=== PATIENT | female | born 1965 | race Caucasian/White ===

== ENCOUNTER 2018-08-16 23:40 | Inpatient (IN) ==
[2018-08-17] MEDS ORDERED: KETOROLAC 30 MG/1 ML VIAL IV STA (01:38)
[2018-08-17 02:26] LABS: Basophils % 0.4 % (0.0-0.8); Eosinophils % 0.5 % (0.00-10.9); Hemoglobin 12.1 GM/DL (12.0-16.0); Immature Granulocytes % 0.5 %; Immature Granulocytes Absolute 0.04 #; Lymphocytes # 2.3 10*3/uL (1.4-4.0); Lymphocytes % 26.8 % (21.3-54.2); Mean Corpuscular HGB Conc 32.7 GM/DL (32-36); Mean Corpuscular Hemoglobin 28 PG (27-34); Mean Corpuscular Volume 85.1 FL (87-102); Mean Platelet Volume 10.1 FL (9.6-12.0); Monocytes # 0.9 10*3/uL (0.11-0.8); Neutrophils # 5.3 10*3/uL (1.4-7.4); Neutrophils % 61.8 % (38.7-73.9); Platelet Count 247 T/CUMM (130-400); Red Blood Count 4.35 MC/CUMM (3.8-5.5); Red Cell Distribution Width 15.7 % (9.3-17.3); White Blood Count 8.6 T/CUMM (4-12)
[2018-08-17 02:51] LABS: Bilirubin,Total 0.6 MG/DL (0.2-1.0); Osmolality,Calculated 287.1 MOS/KG (273-304); Potassium 4.2 MMOL/L (3.5-5.1); Total Protein 8.1 G/DL (6.4-8.3)
[2018-08-17] MEDS ORDERED: INSULIN REGULAR 100 UNIT/ML IV STA (03:26)
[2018-08-17] MEDS ORDERED: SODIUM CHLORIDE 0.9% 2,000 ML IV STA (03:27)
[2018-08-17 03:30] LABS: Apearance,Urine CLEAR (Clear); Bacteria,Urine Occasional /HPF (Few); Bilirubin,Urine Negative (Negative); Blood, Urine Small mg/dL (Negative); Glucose,Urine (UA) >=500 mg/dL (Negative); Ketones,Urine Negative (Negative); Nitrite,Urine Negative (Negative); Protein,Urine Negative; RBC,Urine 4 /HPF (0-4); Squamous Epithelial Cell,Urine Occasional /HPF (0-10); Urine Color Straw (Yellow); Urine Specific Gravity 1.027 (1.001-1.035); Urine Urobilinogen < 2.0 EU/DL (0.2-1.0); WBC,Urine 14 /HPF (0-6)
[2018-08-17] MEDS ORDERED: GLUCAGON 1 MG VIAL IM PRN ×2 (04:09→14:19)
[2018-08-17] MEDS ORDERED: DEXTROSE 50% 25 GM/50 ML VIAL IV PRN (04:09)
[2018-08-17] MEDS: SODIUM CHLORIDE 0.9% 1,000 ML IV SCH ×2 (05:10→17:19)
[2018-08-17 05:20] LABS: Barbiturates Screen,Urine Negative (Negative); Benzodiazepines Screen,Urine Negative (Negative); Cannabinoid Screen,Urine Negative (Negative); Opiate Screen,Urine Positive (Negative); Phencyclidine Screen,Urine Negative (Negative)
[2018-08-17] MEDS: HYDROmorphone 2 MG/1 ML VIAL IV PRN ×10 (05:39→23:19)
[2018-08-17] MEDS ORDERED: LIDOCAINE 1% 20 ML VIAL MISC INJ ONE (07:30)
[2018-08-17] MEDS: INSULIN REGULAR 100 UNIT/ML SUBCUT SCH ×4 (08:17→20:24)
[2018-08-17 08:26] LABS: Cholesterol Crystals None Seen /LPF
[2018-08-17 08:53] LABS: Lymphocytes,Synovial Fluid 2 %; Neutrophils,Synovial Fluid 97 %
[2018-08-17] MEDS ORDERED: INFLUENZA VIRUS VACCINE 0.5 ML SYRINGE IM ONE (09:00)
[2018-08-17 09:39] LABS: Calcium 8.8 MG/DL (8.5-10.1); Osmolality,Calculated 275.4 MOS/KG (273-304)
[2018-08-17] MEDS: ONDANSETRON 4 MG/2 ML VIAL IV PRN ×2 (09:56→16:25)
[2018-08-17 10:38] LABS: HIV Antigen/Antibody Result Nonreactive (Nonreactive)
[2018-08-17] MEDS ORDERED: VANCOMYCIN 1,000 MG VIAL ONE (13:19)
[2018-08-17] MEDS ORDERED: BUPIVACAINE 0.5% 50 ML VIAL ONE (13:19)
[2018-08-17] MEDS ORDERED: BACITRACIN OINT 0.9 GM PACK TOP ONE (13:19)
[2018-08-17] MEDS ORDERED: CYCLOBENZAPRINE 10 MG TABLET PO PRN (14:13)
[2018-08-17] MEDS ORDERED: MIDAZOLAM 2 MG/2 ML VIAL ONE (14:17)
[2018-08-17] MEDS ORDERED: PROPOFOL 200 MG/20 ML VIAL IV ONE (14:17)
[2018-08-17] MEDS ORDERED: SEVOFLURANE 1 UNIT/15 MINUTE INH ONE (14:17)
[2018-08-17] MEDS ORDERED: ROCURONIUM 100 MG/10 ML VIAL IV ONE (14:18)
[2018-08-17] MEDS ORDERED: fentaNYL 100 MCG/2 ML VIAL ONE (14:18)
[2018-08-17] MEDS ORDERED: ONDANSETRON 4 MG/2 ML VIAL ONE (14:18)
[2018-08-17] MEDS ORDERED: DEXTROSE 50% 25 GM/50 ML SYRINGE IV PRN (14:19)
[2018-08-17] MEDS ORDERED: HYDROmorphone 2 MG/1 ML VIAL ONE (14:21)
[2018-08-17] MEDS ORDERED: ACETAMINOPHEN 325 MG TABLET PO PRN (14:24)
[2018-08-17] MEDS ORDERED: KETOROLAC 30 MG/1 ML VIAL IV PRN (14:24)
[2018-08-17] MEDS ORDERED: HYDROmorphone 2 MG/1 ML VIAL IV PRN (14:24)
[2018-08-17] MEDS ORDERED: oxyCODONE/ACETAMINOPHEN 5-325 MG TABLET PO PRN (14:24)
[2018-08-17] MEDS: MEROPENEM 1,000 MG in SODIUM CHLORIDE 0.9% 100 ML IV SCH (17:04)
[2018-08-17] MEDS: glyBURIDE 5 MG TABLET PO SCH (17:39)
[2018-08-17] MEDS: VANCOMYCIN INJ 1,250 MG in SODIUM CHLORIDE 0.9% 250 ML IV SCH (18:10)
[2018-08-17] MEDS: INSULIN GLARGINE 100 UNIT/ML SUBCUT SCH (20:24)
[2018-08-17] MEDS: POTASSIUM CITRATE 10 MEQ TABLET PO SCH (20:24)
[2018-08-18] MEDS: MEROPENEM 1,000 MG in SODIUM CHLORIDE 0.9% 100 ML IV SCH ×3 (00:56→16:40)
[2018-08-18] MEDS: HYDROmorphone 2 MG/1 ML VIAL IV PRN ×7 (02:28→23:01)
[2018-08-18] MEDS: ONDANSETRON 4 MG/2 ML VIAL IV PRN (03:22)
[2018-08-18] MEDS: oxyCODONE/ACETAMINOPHEN 5-325 MG TABLET PO PRN ×2 (03:28→21:46)
[2018-08-18] MEDS: VANCOMYCIN INJ 1,250 MG in SODIUM CHLORIDE 0.9% 250 ML IV SCH ×2 (05:41→18:43)
[2018-08-18 07:14] LABS: Albumin 2.4 G/DL (3.4-5.0); Bilirubin,Total 0.5 MG/DL (0.2-1.0); Calcium 8.5 MG/DL (8.5-10.1); Osmolality,Calculated 273.2 MOS/KG (273-304); Potassium 4.1 MMOL/L (3.5-5.1); Total Protein 6.9 G/DL (6.4-8.3)
[2018-08-18 08:07] LABS: Basophils % 0.5 % (0.0-0.8); Eosinophils # 0.1 10*3/uL (0.0-0.87); Hematocrit 31.4 VOL% (35.7-47.0); Hemoglobin 10.3 GM/DL (12.0-16.0); Immature Granulocytes % 0.3 %; Immature Granulocytes Absolute 0.03 #; Lymphocytes # 2.5 10*3/uL (1.4-4.0); Lymphocytes % 28.4 % (21.3-54.2); Mean Corpuscular HGB Conc 32.8 GM/DL (32-36); Mean Corpuscular Hemoglobin 28 PG (27-34); Mean Corpuscular Volume 85.8 FL (87-102); Mean Platelet Volume 9.4 FL (9.6-12.0); Monocytes # 0.6 10*3/uL (0.11-0.8); Monocytes % 7.2 % (1.7-12.7); Neutrophils # 5.4 10*3/uL (1.4-7.4); Neutrophils % 62.6 % (38.7-73.9); Platelet Count 253 T/CUMM (130-400); Red Blood Count 3.66 MC/CUMM (3.8-5.5); Red Cell Distribution Width 15.7 % (9.3-17.3); White Blood Count 8.7 T/CUMM (4-12)
[2018-08-18] MEDS: INSULIN REGULAR 100 UNIT/ML SUBCUT SCH ×4 (08:45→21:43)
[2018-08-18] MEDS ORDERED: AMPHETAMINE PO SCH (09:00)
[2018-08-18] MEDS ORDERED: DEXTROAMPHETAMINE PO SCH (09:00)
[2018-08-18] MEDS: POTASSIUM CITRATE 10 MEQ TABLET PO SCH ×2 (09:42→21:39)
[2018-08-18] MEDS: glyBURIDE 5 MG TABLET PO SCH ×2 (09:42→16:41)
[2018-08-18] MEDS: METOPROLOL SUCCINATE XL 25 MG TABLET PO SCH (09:42)
[2018-08-18] MEDS: INSULIN GLARGINE 100 UNIT/ML SUBCUT SCH ×2 (09:43→21:40)
[2018-08-18] MEDS: FONDAPARINUX 2.5 MG/0.5 ML SYRINGE SUBCUT SCH (09:45)
[2018-08-18] MEDS: PANTOPRAZOLE 40 MG TABLET PO SCH (18:44)
[2018-08-19] MEDS: MEROPENEM 1,000 MG in SODIUM CHLORIDE 0.9% 100 ML IV SCH ×3 (02:02→17:29)
[2018-08-19] MEDS: HYDROmorphone 2 MG/1 ML VIAL IV PRN ×6 (02:04→20:51)
[2018-08-19 03:11] LABS: Basophils % 0.6 % (0.0-0.8); Eosinophils # 0.1 10*3/uL (0.0-0.87); Eosinophils % 1.9 % (0.00-10.9); Hematocrit 31.5 VOL% (35.7-47.0); Hemoglobin 9.9 GM/DL (12.0-16.0); Immature Granulocytes % 0.4 %; Immature Granulocytes Absolute 0.03 #; Lymphocytes # 2.3 10*3/uL (1.4-4.0); Lymphocytes % 32.8 % (21.3-54.2); Mean Corpuscular HGB Conc 31.4 GM/DL (32-36); Mean Corpuscular Hemoglobin 27 PG (27-34); Mean Corpuscular Volume 86.8 FL (87-102); Mean Platelet Volume 9.8 FL (9.6-12.0); Monocytes # 0.7 10*3/uL (0.11-0.8); Monocytes % 10.4 % (1.7-12.7); Neutrophils # 3.7 10*3/uL (1.4-7.4); Neutrophils % 53.9 % (38.7-73.9); Platelet Count 265 T/CUMM (130-400); Red Blood Count 3.63 MC/CUMM (3.8-5.5); Red Cell Distribution Width 15.5 % (9.3-17.3); White Blood Count 6.9 T/CUMM (4-12)
[2018-08-19 03:26] LABS: Calcium 8.4 MG/DL (8.5-10.1); Osmolality,Calculated 283.8 MOS/KG (273-304); Potassium 4.4 MMOL/L (3.5-5.1)
[2018-08-19] MEDS: ONDANSETRON 4 MG/2 ML VIAL IV PRN (07:51)
[2018-08-19] MEDS: INSULIN REGULAR 100 UNIT/ML SUBCUT SCH ×4 (08:06→20:51)
[2018-08-19] MEDS: INSULIN GLARGINE 100 UNIT/ML SUBCUT SCH ×2 (08:07→20:50)
[2018-08-19] MEDS: POTASSIUM CITRATE 10 MEQ TABLET PO SCH ×2 (08:08→20:51)
[2018-08-19] MEDS: PANTOPRAZOLE 40 MG TABLET PO SCH (08:08)
[2018-08-19] MEDS: PROMETHAZINE 25 MG TABLET PO PRN (08:08)
[2018-08-19] MEDS: METOPROLOL SUCCINATE XL 25 MG TABLET PO SCH (08:08)
[2018-08-19] MEDS: glyBURIDE 5 MG TABLET PO SCH ×2 (08:08→17:29)
[2018-08-19] MEDS: FONDAPARINUX 2.5 MG/0.5 ML SYRINGE SUBCUT SCH (08:09)
[2018-08-19] MEDS: oxyCODONE/ACETAMINOPHEN 5-325 MG TABLET PO PRN ×3 (09:55→18:52)
[2018-08-19] MEDS: VANCOMYCIN INJ 1,250 MG in SODIUM CHLORIDE 0.9% 250 ML IV SCH (12:40)
[2018-08-20] MEDS: MEROPENEM 1,000 MG in SODIUM CHLORIDE 0.9% 100 ML IV SCH ×2 (01:50→09:07)
[2018-08-20] MEDS: VANCOMYCIN INJ 1,250 MG in SODIUM CHLORIDE 0.9% 250 ML IV SCH (01:50)
[2018-08-20] MEDS ORDERED: cefTRIAXone 1,000 MG VIAL IM ONE (02:00)
[2018-08-20] MEDS: HYDROmorphone 2 MG/1 ML VIAL IV PRN ×7 (02:25→21:32)
[2018-08-20] MEDS: MAGNESIUM HYDROXIDE SUSP 30 ML UDCUP PO PRN ×2 (02:33→18:21)
[2018-08-20 05:52] LABS: Basophils # 0.1 10*3/uL (0.0-0.2); Eosinophils # 0.2 10*3/uL (0.0-0.87); Eosinophils % 2.5 % (0.00-10.9); Hematocrit 35.5 VOL% (35.7-47.0); Hemoglobin 11.1 GM/DL (12.0-16.0); Immature Granulocytes % 0.3 %; Immature Granulocytes Absolute 0.02 #; Lymphocytes # 2.7 10*3/uL (1.4-4.0); Lymphocytes % 42.4 % (21.3-54.2); Mean Corpuscular HGB Conc 31.3 GM/DL (32-36); Mean Corpuscular Hemoglobin 27 PG (27-34); Mean Platelet Volume 9.3 FL (9.6-12.0); Monocytes # 0.6 10*3/uL (0.11-0.8); Monocytes % 9.7 % (1.7-12.7); Neutrophils # 2.8 10*3/uL (1.4-7.4); Neutrophils % 44.1 % (38.7-73.9); Platelet Count 334 T/CUMM (130-400); Red Blood Count 4.08 MC/CUMM (3.8-5.5); Red Cell Distribution Width 15.6 % (9.3-17.3); White Blood Count 6.3 T/CUMM (4-12)
[2018-08-20 06:10] LABS: Calcium 8.8 MG/DL (8.5-10.1); Potassium 4.2 MMOL/L (3.5-5.1)
[2018-08-20] MEDS ORDERED: hydrALAZINE 20 MG/1 ML VIAL IV PRN (07:23)
[2018-08-20] MEDS: FONDAPARINUX 2.5 MG/0.5 ML SYRINGE SUBCUT SCH (09:09)
[2018-08-20] MEDS: INSULIN GLARGINE 100 UNIT/ML SUBCUT SCH ×2 (09:09→21:37)
[2018-08-20] MEDS: PANTOPRAZOLE 40 MG TABLET PO SCH (09:09)
[2018-08-20] MEDS: METOPROLOL SUCCINATE XL 25 MG TABLET PO SCH (09:09)
[2018-08-20] MEDS: POTASSIUM CITRATE 10 MEQ TABLET PO SCH ×2 (09:10→21:42)
[2018-08-20] MEDS: glyBURIDE 5 MG TABLET PO SCH ×2 (09:11→17:24)
[2018-08-20] MEDS: INSULIN REGULAR 100 UNIT/ML SUBCUT SCH ×4 (09:14→21:36)
[2018-08-20] MEDS: LEVOFLOXACIN 750 MG TABLET PO SCH (11:26)
[2018-08-20] MEDS: ERTAPENEM 1,000 MG in SODIUM CHLORIDE 0.9% 100 ML IV SCH (11:26)
[2018-08-21] MEDS: HYDROmorphone 2 MG/1 ML VIAL IV PRN ×7 (01:37→22:32)
[2018-08-21 05:38] LABS: Basophils # 0.1 10*3/uL (0.0-0.2); Basophils % 0.8 % (0.0-0.8); Eosinophils # 0.2 10*3/uL (0.0-0.87); Eosinophils % 2.7 % (0.00-10.9); Hematocrit 33.7 VOL% (35.7-47.0); Hemoglobin 10.8 GM/DL (12.0-16.0); Immature Granulocytes % 0.3 %; Immature Granulocytes Absolute 0.02 #; Lymphocytes # 2.6 10*3/uL (1.4-4.0); Lymphocytes % 44.3 % (21.3-54.2); Mean Corpuscular Hemoglobin 28 PG (27-34); Mean Corpuscular Volume 87.8 FL (87-102); Mean Platelet Volume 9.6 FL (9.6-12.0); Monocytes # 0.6 10*3/uL (0.11-0.8); Monocytes % 10.5 % (1.7-12.7); Neutrophils # 2.4 10*3/uL (1.4-7.4); Neutrophils % 41.4 % (38.7-73.9); Platelet Count 331 T/CUMM (130-400); Red Blood Count 3.84 MC/CUMM (3.8-5.5); Red Cell Distribution Width 15.5 % (9.3-17.3); White Blood Count 5.9 T/CUMM (4-12)
[2018-08-21 06:04] LABS: Calcium 8.9 MG/DL (8.5-10.1); Osmolality,Calculated 276.1 MOS/KG (273-304); Potassium 4.8 MMOL/L (3.5-5.1)
[2018-08-21] MEDS: glyBURIDE 5 MG TABLET PO SCH ×2 (09:55→16:30)
[2018-08-21] MEDS: FONDAPARINUX 2.5 MG/0.5 ML SYRINGE SUBCUT SCH (09:55)
[2018-08-21] MEDS: INSULIN GLARGINE 100 UNIT/ML SUBCUT SCH ×2 (09:55→21:32)
[2018-08-21] MEDS: METOPROLOL SUCCINATE XL 25 MG TABLET PO SCH (09:56)
[2018-08-21] MEDS: INSULIN REGULAR 100 UNIT/ML SUBCUT SCH ×4 (09:56→21:31)
[2018-08-21] MEDS: LEVOFLOXACIN 750 MG TABLET PO SCH (09:56)
[2018-08-21] MEDS: POTASSIUM CITRATE 10 MEQ TABLET PO SCH ×2 (09:56→21:32)
[2018-08-21] MEDS: PANTOPRAZOLE 40 MG TABLET PO SCH (09:56)
[2018-08-21] MEDS: ERTAPENEM 1,000 MG in SODIUM CHLORIDE 0.9% 100 ML IV SCH (09:58)
[2018-08-21] MEDS: DOCUSATE SODIUM 100 MG CAPSULE PO SCH (13:06)
[2018-08-22] MEDS: HYDROmorphone 2 MG/1 ML VIAL IV PRN ×7 (01:30→23:39)
[2018-08-22 04:33] LABS: Basophils # 0.1 10*3/uL (0.0-0.2); Eosinophils # 0.2 10*3/uL (0.0-0.87); Eosinophils % 2.4 % (0.00-10.9); Hematocrit 34.8 VOL% (35.7-47.0); Hemoglobin 11.1 GM/DL (12.0-16.0); Immature Granulocytes % 0.6 %; Immature Granulocytes Absolute 0.04 #; Lymphocytes % 44.8 % (21.3-54.2); Mean Corpuscular HGB Conc 31.9 GM/DL (32-36); Mean Corpuscular Hemoglobin 28 PG (27-34); Mean Platelet Volume 9.4 FL (9.6-12.0); Monocytes # 0.7 10*3/uL (0.11-0.8); Monocytes % 9.7 % (1.7-12.7); Neutrophils # 2.8 10*3/uL (1.4-7.4); Neutrophils % 41.5 % (38.7-73.9); Platelet Count 349 T/CUMM (130-400); Red Cell Distribution Width 15.3 % (9.3-17.3); White Blood Count 6.7 T/CUMM (4-12)
[2018-08-22 05:02] LABS: Calcium 9.1 MG/DL (8.5-10.1); Osmolality,Calculated 274.8 MOS/KG (273-304); Potassium 4.4 MMOL/L (3.5-5.1)
[2018-08-22] MEDS: INSULIN REGULAR 100 UNIT/ML SUBCUT SCH ×4 (07:33→21:12)
[2018-08-22] MEDS: glyBURIDE 5 MG TABLET PO SCH ×3 (08:50→16:42)
[2018-08-22] MEDS: ERTAPENEM 1,000 MG in SODIUM CHLORIDE 0.9% 100 ML IV SCH (09:21)
[2018-08-22] MEDS ORDERED: PROPOFOL 200 MG/20 ML VIAL IV ONE (12:34)
[2018-08-22] MEDS ORDERED: PHENYLEPHRINE 10 MG/1 ML VIAL IV ONE (12:34)
[2018-08-22] MEDS ORDERED: SODIUM CHLORIDE 0.9% 100 ML IV ONE (12:34)
[2018-08-22] MEDS ORDERED: ETOMIDATE 40 MG/20 ML VIAL IV ONE (12:34)
[2018-08-22] MEDS: FONDAPARINUX 2.5 MG/0.5 ML SYRINGE SUBCUT SCH ×2 (13:52→14:23)
[2018-08-22] MEDS: INSULIN GLARGINE 100 UNIT/ML SUBCUT SCH ×2 (13:52→21:13)
[2018-08-22] MEDS: DOCUSATE SODIUM 100 MG CAPSULE PO SCH (13:52)
[2018-08-22] MEDS: PANTOPRAZOLE 40 MG TABLET PO SCH (13:53)
[2018-08-22] MEDS: METOPROLOL SUCCINATE XL 25 MG TABLET PO SCH (13:53)
[2018-08-22] MEDS: POTASSIUM CITRATE 10 MEQ TABLET PO SCH ×2 (13:53→20:29)
[2018-08-22] MEDS: LEVOFLOXACIN 750 MG TABLET PO SCH (14:22)
[2018-08-23] MEDS: PROMETHAZINE 25 MG TABLET PO PRN (02:37)
[2018-08-23] MEDS: HYDROmorphone 2 MG/1 ML VIAL IV PRN ×4 (05:41→16:35)
[2018-08-23 08:28] LABS: Basophils # 0.1 10*3/uL (0.0-0.2); Basophils % 0.9 % (0.0-0.8); Eosinophils # 0.2 10*3/uL (0.0-0.87); Eosinophils % 3.1 % (0.00-10.9); Hematocrit 35.8 VOL% (35.7-47.0); Hemoglobin 11.4 GM/DL (12.0-16.0); Immature Granulocytes % 0.4 %; Immature Granulocytes Absolute 0.03 #; Lymphocytes # 3.3 10*3/uL (1.4-4.0); Lymphocytes % 47.1 % (21.3-54.2); Mean Corpuscular HGB Conc 31.8 GM/DL (32-36); Mean Corpuscular Hemoglobin 28 PG (27-34); Mean Corpuscular Volume 88.4 FL (87-102); Mean Platelet Volume 9.1 FL (9.6-12.0); Monocytes # 0.6 10*3/uL (0.11-0.8); Neutrophils # 2.8 10*3/uL (1.4-7.4); Neutrophils % 40.5 % (38.7-73.9); Platelet Count 344 T/CUMM (130-400); Red Blood Count 4.05 MC/CUMM (3.8-5.5); Red Cell Distribution Width 15.3 % (9.3-17.3)
[2018-08-23] MEDS: ERTAPENEM 1,000 MG in SODIUM CHLORIDE 0.9% 100 ML IV SCH (08:43)
[2018-08-23] MEDS: INSULIN REGULAR 100 UNIT/ML SUBCUT SCH ×3 (08:43→16:34)
[2018-08-23] MEDS: FONDAPARINUX 2.5 MG/0.5 ML SYRINGE SUBCUT SCH (08:48)
[2018-08-23] MEDS: POTASSIUM CITRATE 10 MEQ TABLET PO SCH (08:49)
[2018-08-23] MEDS: PANTOPRAZOLE 40 MG TABLET PO SCH (08:50)
[2018-08-23] MEDS: METOPROLOL SUCCINATE XL 25 MG TABLET PO SCH (08:50)
[2018-08-23] MEDS: DOCUSATE SODIUM 100 MG CAPSULE PO SCH (08:50)
[2018-08-23] MEDS: LEVOFLOXACIN 750 MG TABLET PO SCH (08:50)
[2018-08-23] MEDS: glyBURIDE 5 MG TABLET PO SCH ×2 (08:50→16:34)
[2018-08-23] MEDS: INSULIN GLARGINE 100 UNIT/ML SUBCUT SCH (08:52)
[2018-08-23 08:58] LABS: Calcium 8.9 MG/DL (8.5-10.1); Osmolality,Calculated 276.7 MOS/KG (273-304); Potassium 4.2 MMOL/L (3.5-5.1)
[2018-08-23] MEDS: oxyCODONE/ACETAMINOPHEN 5-325 MG TABLET PO PRN (15:34)
[2018-08-23 16:47] VITALS: BP 107/73
== END 2018-08-23 18:10 | disposition home or self-care (01) | DRG 493 ==
LOC: N.ED 23:40 → SUATTDRO 08-17 04:05 → N.EDINP 08-17 04:05 → N.3E 08-17 04:50 → N.2E 08-19 19:03
PROVIDERS: ADMIT Internal Medicine; ATTEND Internal Medicine

== ENCOUNTER 2018-11-28 13:13 | Inpatient (IN) ==
[2018-11-28 13:46] LABS: Basophils % 0.3 % (0.0-0.8); Eosinophils % 0.2 % (0.00-10.9); Hematocrit 42.4 VOL% (35.7-47.0); Hemoglobin 13.6 GM/DL (12.0-16.0); Immature Granulocytes % 0.6 %; Immature Granulocytes Absolute 0.07 #; Lymphocytes # 1.8 10*3/uL (1.4-4.0); Lymphocytes % 15.3 % (21.3-54.2); Mean Corpuscular HGB Conc 32.1 GM/DL (32-36); Mean Corpuscular Hemoglobin 28 PG (27-34); Mean Corpuscular Volume 86.2 FL (87-102); Mean Platelet Volume 10.2 FL (9.6-12.0); Monocytes # 0.8 10*3/uL (0.11-0.8); Monocytes % 6.8 % (1.7-12.7); Neutrophils # 8.9 10*3/uL (1.4-7.4); Neutrophils % 76.8 % (38.7-73.9); Platelet Count 224 T/CUMM (130-400); Red Blood Count 4.92 MC/CUMM (3.8-5.5); Red Cell Distribution Width 15.1 % (9.3-17.3); White Blood Count 11.5 T/CUMM (4-12)
[2018-11-28 14:15] LABS: Albumin 3.3 G/DL (3.4-5.0); Bilirubin,Total 0.9 MG/DL (0.2-1.0); Osmolality,Calculated 274.4 MOS/KG (273-304); Potassium 3.8 MMOL/L (3.5-5.1)
[2018-11-28] MEDS ORDERED: ONDANSETRON 4 MG/2 ML VIAL IV STA (14:22)
[2018-11-28] MEDS ORDERED: HYDROmorphone 2 MG/1 ML VIAL IV STA (14:22)
[2018-11-28 15:53] LABS: Apearance,Urine CLOUDY (Clear); Bacteria,Urine Occasional /HPF (Few); Bilirubin,Urine Negative (Negative); Blood, Urine Small mg/dL (Negative); Glucose,Urine (UA) Negative (Negative); Hyaline Casts,Urine 32 /LPF (0-3); Ketones,Urine 5 mg/dL (Negative); Mucus,Urine Occasional /LPF (Occasional); Nitrite,Urine Negative (Negative); Protein,Urine 30 MG/DL; RBC,Urine <1 /HPF (0-4); Squamous Epithelial Cell,Urine Occasional /HPF (0-10); Urine Color Amber (Yellow); Urine Specific Gravity 1.016 (1.001-1.035); Urine Urobilinogen < 2.0 EU/DL (0.2-1.0); WBC,Urine 1 /HPF (0-6)
[2018-11-28] MEDS ORDERED: SODIUM CHLORIDE 0.9% 1,000 ML IV STA (16:13)
[2018-11-28] MEDS ORDERED: DOCUSATE SODIUM 100 MG CAPSULE PO PRN (16:27)
[2018-11-28] MEDS ORDERED: DEXTROSE 50% 25 GM/50 ML VIAL IV PRN (16:27)
[2018-11-28] MEDS ORDERED: ONDANSETRON 4 MG/2 ML VIAL IV PRN (16:27)
[2018-11-28] MEDS ORDERED: GLUCAGON 1 MG VIAL IM PRN (16:27)
[2018-11-28] MEDS ORDERED: ALBUTEROL 2.5 MG/3 ML NEB RESP TX PRN (19:36)
[2018-11-28] MEDS ORDERED: INSULIN GLARGINE 100 UNIT/ML SUBCUT SCH (21:00)
[2018-11-28] MEDS ORDERED: cefTRIAXone 1,000 MG in SYRINGE 1 EACH IV SCH (21:00)
[2018-11-28] MEDS: INSULIN LISPRO 100 UNIT/ML SUBCUT SCH (21:39)
[2018-11-28] MEDS: SODIUM CHLORIDE 0.9% 1,000 ML IV SCH (21:41)
[2018-11-28] MEDS: METOPROLOL TARTRATE 25 MG TABLET PO SCH (21:44)
[2018-11-28] MEDS: HYDROmorphone 2 MG TABLET PO PRN (21:44)
[2018-11-29] MEDS: INSULIN LISPRO 100 UNIT/ML SUBCUT SCH ×5 (02:01→17:00)
[2018-11-29] MEDS: HYDROmorphone 2 MG TABLET PO PRN ×4 (02:04→13:45)
[2018-11-29 03:49] LABS: Basophils % 0.3 % (0.0-0.8); Eosinophils % 0.1 % (0.00-10.9); Hematocrit 38.8 VOL% (35.7-47.0); Hemoglobin 12.4 GM/DL (12.0-16.0); Immature Granulocytes % 0.7 %; Immature Granulocytes Absolute 0.08 #; Lymphocytes # 1.5 10*3/uL (1.4-4.0); Lymphocytes % 12.1 % (21.3-54.2); Mean Corpuscular Hemoglobin 28 PG (27-34); Mean Corpuscular Volume 86.8 FL (87-102); Mean Platelet Volume 10.6 FL (9.6-12.0); Monocytes # 0.9 10*3/uL (0.11-0.8); Monocytes % 7.1 % (1.7-12.7); Neutrophils # 9.5 10*3/uL (1.4-7.4); Neutrophils % 79.7 % (38.7-73.9); Platelet Count 230 T/CUMM (130-400); Red Blood Count 4.47 MC/CUMM (3.8-5.5); White Blood Count 11.9 T/CUMM (4-12)
[2018-11-29 04:09] LABS: Albumin 3.1 G/DL (3.4-5.0); Calcium 8.6 MG/DL (8.5-10.1); Osmolality,Calculated 275.7 MOS/KG (273-304); Total Protein 8.4 G/DL (6.4-8.3)
[2018-11-29] MEDS: SODIUM CHLORIDE 0.9% 1,000 ML IV SCH ×4 (06:13→19:01)
[2018-11-29] MEDS ORDERED: PANTOPRAZOLE 40 MG TABLET PO SCH (09:00)
[2018-11-29] MEDS: METOPROLOL TARTRATE 25 MG TABLET PO SCH (09:21)
[2018-11-29] MEDS ORDERED: cefTAZidime 2,000 MG in SYRINGE 1 EACH IV SCH (14:30)
[2018-11-29] MEDS ORDERED: METHOCARBAMOL 750 MG TABLET PO PRN (14:54)
[2018-11-29] MEDS ORDERED: HYDROmorphone 2 MG TABLET PO PRN (14:57)
[2018-11-29] MEDS ORDERED: VANCOMYCIN INJ 1,500 MG in SODIUM CHLORIDE 0.9% 500 ML IV SCH (15:00)
[2018-11-29] MEDS ORDERED: DOCUSATE SODIUM 100 MG CAPSULE PO SCH (15:00)
[2018-11-29] MEDS ORDERED: INSULIN GLARGINE 100 UNIT/ML SUBCUT SCH (16:30)
[2018-11-29] MEDS ORDERED: ZALEPLON 5 MG CAPSULE PO SCH (21:00)
[2018-11-29 22:05] VITALS: BP 121/76
== END 2018-11-29 20:20 | disposition hospice, home (50) | DRG 94 ==
LOC: N.ED 13:13 → N.EDINP 16:27 → N.5E 18:02
PROVIDERS: ADMIT Internal Medicine; ATTEND Internal Medicine

== ENCOUNTER 2019-04-17 16:08 | Inpatient (IN) ==
[2019-04-17] MEDS ORDERED: FAMOTIDINE 20 MG TABLET PO PRN (17:33)
[2019-04-17] MEDS ORDERED: DEXTROSE 50% 25 GM/50 ML VIAL IV PRN ×2 (17:33→20:43)
[2019-04-17] MEDS ORDERED: MAGNESIUM HYDROXIDE SUSP 30 ML UDCUP PO PRN (17:33)
[2019-04-17] MEDS ORDERED: PROMETHAZINE 25 MG/1 ML VIAL IM PRN (17:33)
[2019-04-17] MEDS ORDERED: ZALEPLON 5 MG CAPSULE PO PRN (17:33)
[2019-04-17] MEDS ORDERED: GLUCAGON 1 MG VIAL IM PRN (17:33)
[2019-04-17] MEDS ORDERED: HYDROmorphone 2 MG TABLET PO PRN (17:40)
[2019-04-17] MEDS ORDERED: DEXTROSE 10% 250 ML IV PRN (18:27)
[2019-04-17 19:25] LABS: Basophils # 0.1 10*3/uL (0.0-0.2); Basophils % 0.9 % (0.0-0.8); Eosinophils % 0.4 % (0.00-10.9); Hematocrit 40.1 VOL% (35.7-47.0); Hemoglobin 13.1 GM/DL (12.0-16.0); Lymphocytes # 3.2 10*3/uL (1.4-4.0); Lymphocytes % 32.5 % (21.3-54.2); Mean Corpuscular HGB Conc 32.7 GM/DL (32-36); Mean Corpuscular Volume 84.1 FL (87-102); Mean Platelet Volume 9.5 FL (9.6-12.0); Monocytes % 9.3 % (1.7-12.7); Neutrophils % 55.9 % (38.7-73.9); Platelet Count 437 T/CUMM (130-400); Red Blood Count 4.77 MC/CUMM (3.8-5.5); White Blood Count 9.8 T/CUMM (4-12)
[2019-04-17 19:34] LABS: PT Patient Result 10.7 SECS; Partial Thromboplastin Time 25.9 SECS (20-40)
[2019-04-17 19:41] LABS: Albumin 3.4 G/DL (3.4-5.0); Bilirubin,Total 0.6 MG/DL (0.2-1.0); Calcium 9.1 MG/DL (8.5-10.1); Osmolality,Calculated 278.4 MOS/KG (273-304); Total Protein 8.7 G/DL (6.4-8.3)
[2019-04-17] MEDS: HYDROmorphone 2 MG TABLET PO PRN (20:42)
[2019-04-17] MEDS ORDERED: hydrALAZINE 20 MG/1 ML VIAL IV PRN (20:44)
[2019-04-17] MEDS: DOCUSATE SODIUM 100 MG CAPSULE PO SCH ×2 (20:56→21:03)
[2019-04-17] MEDS: cefTRIAXone 2,000 MG in SYRINGE 1 EACH IV SCH (20:56)
[2019-04-17 22:09] LABS: Apearance,Urine CLOUDY (Clear); Bilirubin,Urine Negative (Negative); Blood, Urine Negative (Negative); Glucose,Urine (UA) >=500 mg/dL (Negative); Hyaline Casts,Urine 40 /LPF (0-3); Ketones,Urine Negative (Negative); Mucus,Urine Few /LPF (Occasional); Nitrite,Urine Negative (Negative); Protein,Urine Negative; RBC,Urine 1 /HPF (0-4); Squamous Epithelial Cell,Urine Moderate /HPF (0-10); Urine Color Yellow (Yellow); Urine Specific Gravity 1.023 (1.001-1.035); Urine Urobilinogen < 2.0 EU/DL (0.2-1.0); WBC,Urine 3 /HPF (0-6)
[2019-04-17] MEDS: VANCOMYCIN INJ 1,000 MG in SODIUM CHLORIDE 0.9% 250 ML IV SCH (23:25)
[2019-04-17] MEDS: LACTATED RINGERS 1,000 ML IV SCH (23:26)
[2019-04-18] MEDS: HYDROmorphone 2 MG TABLET PO PRN ×4 (00:35→21:26)
[2019-04-18] MEDS: INSULIN REGULAR 100 UNIT/ML SUBCUT SCH ×5 (00:52→23:42)
[2019-04-18] MEDS: METOPROLOL TARTRATE 25 MG TABLET PO SCH (08:00)
[2019-04-18] MEDS ORDERED: BUPIVACAINE 0.5% 50 ML VIAL ONE (08:05)
[2019-04-18] MEDS: DOCUSATE SODIUM 100 MG CAPSULE PO SCH ×2 (09:27→21:27)
[2019-04-18] MEDS: PANTOPRAZOLE 40 MG TABLET PO SCH (09:27)
[2019-04-18] MEDS: VANCOMYCIN INJ 1,000 MG in SODIUM CHLORIDE 0.9% 250 ML IV SCH ×2 (09:57→21:31)
[2019-04-18] MEDS ORDERED: PROPOFOL 200 MG/20 ML VIAL IV ONE (10:25)
[2019-04-18] MEDS ORDERED: PHENYLEPHRINE 1 MG/10 ML SYRINGE IV ONE (10:26)
[2019-04-18] MEDS ORDERED: fentaNYL 100 MCG/2 ML VIAL ONE (10:26)
[2019-04-18] MEDS ORDERED: LACTATED RINGERS 1,000 ML IV ONE (10:26)
[2019-04-18] MEDS ORDERED: MIDAZOLAM 2 MG/2 ML VIAL ONE (10:26)
[2019-04-18] MEDS: HYDROmorphone 2 MG/1 ML VIAL IV PRN ×4 (10:43→23:13)
[2019-04-18] MEDS ORDERED: ONDANSETRON 4 MG/2 ML VIAL IV PRN (10:45)
[2019-04-18 12:58] LABS: Basophils # 0.1 10*3/uL (0.0-0.2); Basophils % 1.3 % (0.0-0.8); Eosinophils # 0.1 10*3/uL (0.0-0.87); Hematocrit 35.3 VOL% (35.7-47.0); Hemoglobin 11.2 GM/DL (12.0-16.0); Immature Granulocytes % 1.1 %; Immature Granulocytes Absolute 0.09 #; Lymphocytes # 3.9 10*3/uL (1.4-4.0); Lymphocytes % 46.3 % (21.3-54.2); Mean Corpuscular HGB Conc 31.7 GM/DL (32-36); Mean Corpuscular Volume 85.9 FL (87-102); Mean Platelet Volume 9.6 FL (9.6-12.0); Neutrophils % 41.3 % (38.7-73.9); Platelet Count 391 T/CUMM (130-400); Red Blood Count 4.11 MC/CUMM (3.8-5.5); Red Cell Distribution Width 14.3 % (9.3-17.3); White Blood Count 8.3 T/CUMM (4-12)
[2019-04-18 13:25] LABS: Calcium 8.8 MG/DL (8.5-10.1); Osmolality,Calculated 278.5 MOS/KG (273-304)
[2019-04-18] MEDS: LACTATED RINGERS 1,000 ML IV SCH (16:40)
[2019-04-18] MEDS: AMITRIPTYLINE 50 MG TABLET PO SCH (21:26)
[2019-04-18] MEDS: cefTRIAXone 2,000 MG in SYRINGE 1 EACH IV SCH (21:28)
[2019-04-18] MEDS: INSULIN GLARGINE 100 UNIT/ML SUBCUT SCH (21:30)
[2019-04-19] MEDS: ONDANSETRON 4 MG/2 ML VIAL IV PRN ×2 (01:14→20:43)
[2019-04-19] MEDS: HYDROmorphone 2 MG TABLET PO PRN ×5 (03:15→22:10)
[2019-04-19 04:09] LABS: Basophils # 0.1 10*3/uL (0.0-0.2); Basophils % 0.8 % (0.0-0.8); Eosinophils # 0.1 10*3/uL (0.0-0.87); Eosinophils % 0.7 % (0.00-10.9); Hematocrit 33.1 VOL% (35.7-47.0); Hemoglobin 10.5 GM/DL (12.0-16.0); Immature Granulocytes % 0.6 %; Immature Granulocytes Absolute 0.05 #; Lymphocytes # 2.3 10*3/uL (1.4-4.0); Lymphocytes % 26.4 % (21.3-54.2); Mean Corpuscular HGB Conc 31.7 GM/DL (32-36); Mean Corpuscular Volume 86.2 FL (87-102); Mean Platelet Volume 9.8 FL (9.6-12.0); Monocytes % 9.1 % (1.7-12.7); Neutrophils % 62.4 % (38.7-73.9); Platelet Count 343 T/CUMM (130-400); Red Blood Count 3.84 MC/CUMM (3.8-5.5); Red Cell Distribution Width 14.1 % (9.3-17.3); White Blood Count 8.7 T/CUMM (4-12)
[2019-04-19 04:34] LABS: Calcium 8.4 MG/DL (8.5-10.1); Osmolality,Calculated 285.8 MOS/KG (273-304)
[2019-04-19] MEDS: INSULIN REGULAR 100 UNIT/ML SUBCUT SCH ×3 (06:18→18:43)
[2019-04-19 08:45] LABS: Albumin (SPE) 4.1 G/DL (3.2-5.3); Albumin (SPE) Rel % 57.7 %; Alpha 1 (SPE) 0.2 G/DL (0.1-0.4); Alpha 2 (SPE) 0.7 G/DL (0.4-1.0); Alpha 2 (SPE) Rel % 9.4 %; Beta (SPE) 0.7 G/DL (0.5-1.1); Gamma (SPE) 1.4 G/DL (0.7-1.7); Gamma (SPE) Rel % 19.9 %
[2019-04-19 09:31] LABS: Total Protein (Chem) 7.1 G/DL (6.4-8.3)
[2019-04-19] MEDS: VANCOMYCIN INJ 1,000 MG in SODIUM CHLORIDE 0.9% 250 ML IV SCH ×2 (10:36→22:18)
[2019-04-19] MEDS: PANTOPRAZOLE 40 MG TABLET PO SCH (10:39)
[2019-04-19] MEDS: METOPROLOL TARTRATE 25 MG TABLET PO SCH (10:40)
[2019-04-19] MEDS: DOCUSATE SODIUM 100 MG CAPSULE PO SCH ×2 (10:40→20:41)
[2019-04-19] MEDS: AMITRIPTYLINE 50 MG TABLET PO SCH (20:41)
[2019-04-19] MEDS: INSULIN GLARGINE 100 UNIT/ML SUBCUT SCH (20:41)
[2019-04-19] MEDS: cefTRIAXone 2,000 MG in SYRINGE 1 EACH IV SCH (20:45)
[2019-04-20] MEDS: INSULIN REGULAR 100 UNIT/ML SUBCUT SCH ×4 (01:04→19:00)
[2019-04-20] MEDS: HYDROmorphone 2 MG TABLET PO PRN ×5 (02:42→23:07)
[2019-04-20 05:05] LABS: Basophils # 0.1 10*3/uL (0.0-0.2); Basophils % 0.7 % (0.0-0.8); Eosinophils # 0.1 10*3/uL (0.0-0.87); Eosinophils % 1.6 % (0.00-10.9); Hematocrit 32.8 VOL% (35.7-47.0); Hemoglobin 10.7 GM/DL (12.0-16.0); Immature Granulocytes % 0.3 %; Immature Granulocytes Absolute 0.03 #; Lymphocytes # 3.9 10*3/uL (1.4-4.0); Lymphocytes % 44.6 % (21.3-54.2); Mean Corpuscular HGB Conc 32.6 GM/DL (32-36); Mean Corpuscular Volume 85.9 FL (87-102); Monocytes % 7.8 % (1.7-12.7); Platelet Count 365 T/CUMM (130-400); Red Blood Count 3.82 MC/CUMM (3.8-5.5); White Blood Count 8.6 T/CUMM (4-12)
[2019-04-20 05:26] LABS: Calcium 8.8 MG/DL (8.5-10.1)
[2019-04-20] MEDS ORDERED: SODIUM CHLORIDE 0.9% 1,000 ML IV SCH (07:30)
[2019-04-20] MEDS: METOPROLOL TARTRATE 25 MG TABLET PO SCH (11:26)
[2019-04-20] MEDS: PANTOPRAZOLE 40 MG TABLET PO SCH (11:26)
[2019-04-20] MEDS: DOCUSATE SODIUM 100 MG CAPSULE PO SCH ×2 (11:41→21:55)
[2019-04-20] MEDS: VANCOMYCIN INJ 1,000 MG in SODIUM CHLORIDE 0.9% 250 ML IV SCH ×2 (11:41→23:12)
[2019-04-20] MEDS: HYDROmorphone 2 MG/1 ML VIAL IV PRN (15:10)
[2019-04-20] MEDS: cefTRIAXone 2,000 MG in SYRINGE 1 EACH IV SCH (21:57)
[2019-04-20] MEDS: INSULIN GLARGINE 100 UNIT/ML SUBCUT SCH (21:59)
[2019-04-20] MEDS: AMITRIPTYLINE 50 MG TABLET PO SCH (21:59)
[2019-04-21] MEDS: INSULIN REGULAR 100 UNIT/ML SUBCUT SCH ×4 (01:11→18:40)
[2019-04-21] MEDS: HYDROmorphone 2 MG/1 ML VIAL IV PRN ×3 (01:37→22:45)
[2019-04-21 05:20] LABS: Basophils # 0.1 10*3/uL (0.0-0.2); Basophils % 1.2 % (0.0-0.8); Eosinophils # 0.2 10*3/uL (0.0-0.87); Eosinophils % 2.5 % (0.00-10.9); Hematocrit 30.7 VOL% (35.7-47.0); Hemoglobin 9.7 GM/DL (12.0-16.0); Immature Granulocytes % 0.3 %; Immature Granulocytes Absolute 0.02 #; Lymphocytes # 2.5 10*3/uL (1.4-4.0); Mean Corpuscular HGB Conc 31.6 GM/DL (32-36); Mean Corpuscular Volume 87.5 FL (87-102); Monocytes % 7.9 % (1.7-12.7); Neutrophils % 51.1 % (38.7-73.9); Platelet Count 309 T/CUMM (130-400); Red Blood Count 3.51 MC/CUMM (3.8-5.5); White Blood Count 6.8 T/CUMM (4-12)
[2019-04-21 05:34] LABS: Calcium 8.7 MG/DL (8.5-10.1); Osmolality,Calculated 283.8 MOS/KG (273-304)
[2019-04-21] MEDS: HYDROmorphone 2 MG TABLET PO PRN ×4 (05:56→20:58)
[2019-04-21] MEDS ORDERED: INSULIN GLARGINE 100 UNIT/ML SUBCUT SCH (08:48)
[2019-04-21] MEDS: METOPROLOL TARTRATE 25 MG TABLET PO SCH (10:19)
[2019-04-21] MEDS: PANTOPRAZOLE 40 MG TABLET PO SCH (10:19)
[2019-04-21] MEDS: VANCOMYCIN INJ 1,000 MG in SODIUM CHLORIDE 0.9% 250 ML IV SCH ×2 (10:23→22:36)
[2019-04-21] MEDS: DOCUSATE SODIUM 100 MG CAPSULE PO SCH ×3 (10:23→21:02)
[2019-04-21] MEDS: GABAPENTIN 300 MG CAPSULE PO SCH ×2 (16:28→20:57)
[2019-04-21] MEDS: INSULIN NPH/REGULAR 70/30 100 UNIT/ML SUBCUT SCH (18:44)
[2019-04-21] MEDS: POTASSIUM CITRATE 10 MEQ TABLET PO SCH (20:58)
[2019-04-21] MEDS: cefTRIAXone 2,000 MG in SYRINGE 1 EACH IV SCH (20:58)
[2019-04-21] MEDS: AMITRIPTYLINE 50 MG TABLET PO SCH (20:59)
[2019-04-22] MEDS: INSULIN REGULAR 100 UNIT/ML SUBCUT SCH ×3 (00:58→12:49)
[2019-04-22] MEDS: HYDROmorphone 2 MG TABLET PO PRN ×4 (01:14→15:10)
[2019-04-22] MEDS: DOCUSATE SODIUM 100 MG CAPSULE PO SCH (09:21)
[2019-04-22] MEDS: METOPROLOL TARTRATE 25 MG TABLET PO SCH (09:21)
[2019-04-22] MEDS: GABAPENTIN 300 MG CAPSULE PO SCH ×2 (09:21→16:00)
[2019-04-22] MEDS: INSULIN NPH/REGULAR 70/30 100 UNIT/ML SUBCUT SCH ×2 (09:21→16:36)
[2019-04-22] MEDS: PANTOPRAZOLE 40 MG TABLET PO SCH (09:22)
[2019-04-22] MEDS: POTASSIUM CITRATE 10 MEQ TABLET PO SCH (09:22)
[2019-04-22] MEDS: VANCOMYCIN INJ 1,000 MG in SODIUM CHLORIDE 0.9% 250 ML IV SCH (10:00)
[2019-04-22 16:49] VITALS: BP 131/61
== END 2019-04-22 18:00 | disposition home or self-care (01) | DRG 514 ==
LOC: N.3E 18:17
PROVIDERS: ADMIT Orthopaedic Surgery; ATTEND Orthopaedic Surgery